=== PATIENT | male | born 1995 | race Caucasian/White ===

== ENCOUNTER 2021-06-30 06:34 | Emergency (ER) | payer SELFPAY ==
[2021-06-30 06:36] VITALS: BP 136/83; PULSE 72; RESP 16; TEMP 36.2; O2SAT 100; BMI 32.5
[2021-06-30] MEDS: Tetracaine 0.5% Ophthalmic Bottle 1 DRP RIGHT EYE (06:47)
[2021-06-30] MEDS: Fluorescein 1 MG STRIP 1 STRIP RIGHT EYE (06:47)
--- NOTE | 2021-06-30 07:19 | EDS_ITS ---
HPI History of Present Illness Chief Complaint: Eye Problem Detail of Chief Complaint: Foreign body sensation right eye Informant: patient Onset/Context/Timing Location: Right Eye Onset: Today and Hours (2) Context: Sudden Onset Timing: Continuous Worsened by: Nothing Relieved by: Nothing Associated Symptoms Associated Symptoms - Eyes: Burning, Drainage (Watery), Foreign body sensation, Itching and Pain; Negative for Crusting, Eyelid swelling, Matting, Photophobia and Redness History of injury: Yes and Foreign body Visual correction: None Narrative Narrative: Patient presents with foreign body sensation in his right eye that began this morning approximately 2 hours prior to arrival. Patient states he was cleaning metal reflectors from the road when something got into his eye. Patient denies any visual changes. Patient states he thought he saw something over the medial aspect of his cornea. Patient states he irrigated his right eye but he still feels like there is something in there. Patient admits to watery drainage. Patient admits to some burning and itching. [facility] Medical History Collar bone fracture Home Medications NK 06/30/21 [History Last Taken Unknown] Allergy/AdvReac Type Severity Reaction Status Date / Time oxycodone AdvReac Other Verified 06/30/21 06:35 Surgical History History of cholecystectomy Social History Smoking Status: Never smoker ROS ROS ED Constitutional Constitutional ED: Denies chills or fever(s) Eyes Eyes: Denies blurry vision or change in vision ENT ENT ED: Reports rhinorrhea; Denies sore throat Cardiovascular Cardiovascular: Denies chest pain or palpitations Respiratory/Chest Respiratory/Chest: Denies cough or dyspnea Gastrointestinal Gastrointestinal: Denies nausea or vomiting Genitourinary Genitourinary ED: Denies dysuria or hematuria Musculoskeletal Musculoskeletal: Denies back pain or neck pain Integumentary Denies abscess or rash Neurologic Neurologic: Denies headache(s) or weakness Allergic/Immunologic Allergic/Immunologic ED: Denies mouth swelling or urticaria EXAM Physical Exam Const Vital Signs: 06/30/21 06:36 Temperature 97.2 F L Temperature Source Temporal Pulse Rate 72 Respiratory Rate 16 Blood Pressure 136/83 H Blood Pressure Mean 100 Pulse Ox 100 Positive well nourished and well developed General Appearance ED: well developed HEENT atraumatic Eyes General Eye ED: Yes normal appearance of both eyes Alignment: alignment normal Periorbital: periorbital findings normal Eyelid: eyelids normal Conjunctiva: conjunctiva normal Sclera: sclera normal Cornea: cornea abnormal Positive for right Cornea - Right Eye: Positive for abrasion Positive for at clock position (12) and fluorescein used Pupil: PERRL and accommodation reflex normal Slit Lamp: slit lamp exam performed with fluorescein, lids/lashes/lacrimal system normal appearing, conjunctiva/sclera normal appearing, cornea epithelial irregularities and anterior chamber normal appearing Neck supple and no JVD Neuro oriented x3, CN's II-XII intact bilaterally, moves all extremities and no sensory deficits noted Sensorium / Orientation: alert Motor Exam: strength 5/5 throughout MDM MDM MDM Narrative Medical decision making narrative: There is a superficial corneal abrasion in the superior right cornea at the 12 o'clock position. I did not see any foreign bodies. The eyelid was everted. There are no foreign bodies there. Patient was given bacitracin ophthalmic ointment. Patient was instructed to follow-up with his primary care physician in 2 to 3 days. Patient understood and was agreeable with the plan. All questions were answered. Discharge Plan Triage Chief Complaint: Eye Problem ED Provider: Grey Lizarraga Dx/Rx/DC Orders Clinical Impression: Corneal abrasion, right Instructions: ED Corneal Abrasion Prescriptions: No Action NK RF: 0 Primary Care Provider: NOT,DEFINED Referrals: Vasiliy Tompkins MD [STAFF PHYSICIAN] - 2 Days NOT,DEFINED [Primary Care Provider] - 2 Days Disposition Disposition: Home, Self Care
[2021-06-30] MEDS: Erythromycin Base 1 OPTH.TUBE 1 APPLIC RIGHT EYE (07:48)
[2021-06-30 07:51] VITALS: RESP 16; O2SAT 97
== END 2021-06-30 07:51 | disposition home or self-care (01) ==
LOC: ED 07:32
PROVIDERS: Emergency Provider Emergency Medicine
DX: S05.01XA Injury of conjunctiva and corneal abrasion without foreign body, right eye, initial encounter (principal); X58.XXXA Exposure to other specified factors, initial encounter; Y93.89 Activity, other specified; Y92.89 Other specified places as the place of occurrence of the external cause; Y99.8 Other external cause status
CPT/HCPCS: 99282; A4216